=== PATIENT | male | born 1950 ===

== ENCOUNTER 2016-09-05 08:00 | Day surgery (SDC) | payer MEDICARE ==
[2016-02-07 17:22] VITALS: BMI 25.1
[2016-09-05] MEDS ORDERED: Dextrose 5%/0.45% NS 1,000 ML IV ONE (08:52)
[2016-09-05 08:53] VITALS: RESP 20
[2016-09-05] MEDS ORDERED: Propofol 10 mg/ml Inj (20 ML) ONE (10:33)
[2016-09-05 10:54] VITALS: PULSE 67; O2SAT 100
[2016-09-05 11:03] VITALS: BP 119/67; TEMP 95.5
== END 2016-09-05 11:30 | disposition home or self-care (01) ==
LOC: H.ENDO 08:00
PROVIDERS: ATTEND Internal Medicine Gastroenterology
DX: K29.50 Unspecified chronic gastritis without bleeding (principal); K29.80 Duodenitis without bleeding; R12 Heartburn
CPT/HCPCS: 43239; 82948; 88305; J2704; J7042

== ENCOUNTER 2017-01-11 10:52 | Inpatient (IN) | payer MEDICARE ==
[2017-01-11 10:52] VITALS: BMI 25.1
--- NOTE | 2017-01-11 11:26 | ED PDOC ---
ATTENTION PHYSICIANS Hyperglycemia/Hypoglycemia <Marisabel Mendez Y - Last Filed: 01/11/17 15:10> Chief Complaint (Provider): High blood sugar History Per: Patient History/Exam Limitations: no limitations Onset/Duration Of Symptoms: Hrs Current Symptoms Are (Timing): Still Present Current Diabetic Medications: Insulin Causative (Exacerbating) Factor(s): Other (Unknown) Associated Infectious Symptoms: Other (None) : The patient does not have any of the infectious symptoms listed except for those marked. Treatment Prior To Provider Evaluation: None Additional Complaint(s): 66 y/o M with PMHx of IDDM and CABG surgery, presents to ED c/o high blood sugar levels. Patient was called by his PMD and advised to come to ED due to abnormal labs. As per patient he has been complaint with his home insulin consisting of Lantus 78 units at night and Humalog SS with meals. Denies CP, Palpitations, SOB, vision changes, dysuria, urinary frequency, abd pain, headache, diarrhea or SOB. His last insulin administration was Lantus last night. <Tc Herrera - Last Filed: 01/11/17 16:51> Time Seen by Provider: 01/11/17 11:16 Chief Complaint (Nursing): High Blood Sugar Past Medical History Vital Signs: Last Vital Signs Temp 97.2 F L 01/11/17 10:57 Pulse 88 01/11/17 10:57 Resp 20 01/11/17 10:57 BP 113/56 L 01/11/17 10:57 Pulse Ox 100 01/11/17 11:30 <Marisabel Mendez Y - Last Filed: 01/11/17 15:10> Vital Signs: Last Vital Signs Temp 97.2 F L 01/11/17 10:57 Pulse 88 01/11/17 10:57 Resp 20 01/11/17 10:57 BP 113/56 L 01/11/17 10:57 Pulse Ox 100 01/11/17 10:57 - Medical History PMH: Anxiety, CAD, Depression (SOMETIMES NO MEDS), Diabetes, HTN, Hypercholesterolemia, Pancreatitis, Chronic Kidney Disease (50 % FUNCTION) - Surgical History Surgical History: CABG (5 VESSELS), Endoscopy - Family History Family History: States: Unknown Family Hx <Tc Herrera - Last Filed: 01/11/17 16:51> - Home Medications Home Medications: Ambulatory Orders Medication Instructions Recorded Aspirin [Aspirin EC] 81 mg PO HS 03/11/14 Insulin Aspart [Novolog Flexpen] 9 - 23 units SC ACTID 03/11/14 Insulin Glargine,Hum.rec.anlog 78 unit SC HS 03/11/14 [Lantus] Calcium Carbonate [Caltrate] 1 tab PO DAILY 01/11/17 Cholecalciferol (Vitamin D3) 5,000 unit PO DAILY 01/11/17 [Vitamin D3] Magnesium Oxide [Mag-Ox] 400 mg PO DAILY 01/11/17 [place]-3 Fatty Acids/Fish Oil [Fish 1,000 mg PO DAILY 01/11/17 Oil 1,000 mg Capsule] Rosuvastatin Calcium [Crestor] 20 mg PO HS 01/11/17 Valsartan [Diovan] 160 mg PO HS 01/11/17 - Allergies Allergies/Adverse Reactions: Allergies Allergy/AdvReac Type Severity Reaction Status Date / Time No Known Allergies Allergy Verified 01/11/17 11:22 Review of Systems ROS Statement: Except As Marked, All Systems Reviewed And Found Negative Gastrointestinal: Positive for: Constipation Psych: Positive for: Depression <Tc Herrera - Last Filed: 01/11/17 16:51> Physical Exam - Reviewed Vital Signs Reviewed: Yes - Physical Exam Appears: Positive for: Non-toxic, No Acute Distress Skin: Positive for: Normal Color, Warm Eye Exam: Positive for: PERRL Cardiovascular/Chest: Positive for: Regular Rate, Rhythm. Negative for: Edema, Gallop Respiratory: Positive for: Normal Breath Sounds. Negative for: Respiratory Distress Gastrointestinal/Abdominal: Positive for: Soft. Negative for: Tenderness Extremity: Positive for: Capillary Refill, Other (B/L 1st toe partial amputation ). Negative for: Tenderness, Pedal Edema Neurologic/Psych: Positive for: Alert, Oriented. Negative for: Aphasia, Facial Droop <Tc Herrera - Last Filed: 01/11/17 16:51> - Laboratory Results Result Diagrams: 01/11/17 11:32 01/11/17 11:32 <Marisabel Mendez - Last Filed: 01/11/17 15:10> - Laboratory Results Result Diagrams: 01/11/17 11:32 01/11/17 11:32 - ECG O2 Sat by Pulse Oximetry: 100 <Tc Herrera - Last Filed: 01/11/17 16:51> Medical Decision Making Medical Decision Making: -Patient signed out to me by resident. Pending labs. patient's glucose is 842, Anion gap is 16. 1320 -Spoke to Dr. Boo who wants patient in unit. 1322 -Called boiler coverer. Dr. Boo at bedside 1325 -Spoke to boiler coverer. Dr. Austin wants serum osmolality before deciding. 15:03 -Serum osmolality is 330. Will admit patient inpatient to telemetry under Dr. Boo. 15:08 -Spoke to Dr. Luciano, phlebotomy instructor, who said to stop drip <Marisabel Mendez - Last Filed: 01/11/17 15:10> Medical Decision Making: Hyperglycemia on IDDM Stable no acute distress F/U CBC, CMP, VBG, UA UCx NS 1 L IV 500mls Monitor Revaluate <Tc Herrera - Last Filed: 01/11/17 16:51> Disposition - Patient ED Disposition Is Patient to be Admitted: Yes Counseled Patient/Family Regarding: Studies Performed - Disposition Disposition Time: 15:01 - Pt Status Changed To: Hospital Disposition Of: Inpatient - Admit Certification Admit to Inpatient:: After my assessment, the patient will require hospitalization for at least two midnights. This is because of the severity of symptoms shown, intensity of services needed, and/or the medical risk in this patient being treated as an outpatient. <Marisabel Mendez - Last Filed: 01/11/17 15:10> - Disposition Patient Signed Over To: Marisabel Mendez (Pending labs) <Tc Herrera - Last Filed: 01/11/17 16:51> - Clinical Impression Clinical Impression: Hyperglycemia - Disposition Condition: STABLE
[2017-01-11] MEDS ORDERED: Sodium Chloride 0.9% 1,000 ML IV ONE (11:30)
[2017-01-11 11:48] LABS: BASO # 0.1 K/uL (0.0-0.2); BASO % 0.9 % (0.0-2.0); EOS # 0.1 K/uL (0.0-0.7); EOS % 1.3 % (0.0-4.0); HEMATOCRIT 37.5 % (35.0-51.0); LYMPH # 1.1 K/uL (1.0-4.3); LYMPH % 13.3 % (20.0-40.0); MEAN CELL VOLUME 91.4 fl (80.0-94.0); MEAN CORPUSCULAR HEMOGLOBIN 31.7 pg (27.0-31.0); MEAN CORPUSCULAR HGB CONC 34.7 g/dL (33.0-37.0); MEAN PLATELET VOLUME 9.7 fl (7.2-11.7); MONO # 0.9 K/uL (0.0-0.8); MONO % 10.1 % (0.0-10.0); NEUT # 6.3 K/uL (1.8-7.0); NEUT % 74.4 % (50.0-75.0); RBC URINE < 1 /hpf (0-3); RED CELL DISTRIBUTION WIDTH 12.3 % (11.5-14.5); URINE BILIRUBIN NEGATIVE (NEGATIVE); URINE BLOOD NEGATIVE (NEGATIVE); URINE COLOR STRAW (YELLOW); URINE GLUCOSE (UA) >=500 mg/dL (Normal); URINE KETONE TRACE mg/dL (NEGATIVE); URINE LEUKOCYTE ESTERASE NEG Leu/uL (Negative); URINE PROTEIN NEGATIVE (NEGATIVE); URINE UROBILINOGEN 0.2-1.0 mg/dL (0.2-1.0); WBC URINE < 1 /hpf (0-5); WHITE BLOOD COUNT 8.4 K/uL (4.8-10.8)
[2017-01-11 11:51] LABS: VENOUS BLOOD GAS PCO2 52 mmHg (40-60); VENOUS BLOOD PH 7.28 (7.32-7.43)
[2017-01-11 12:15] LABS: ALB/GLOB RATIO 1.2 (1.0-2.1); BILIRUBIN,TOTAL 0.8 mg/dl (0.2-1.3); CALCIUM 9.1 mg/dL (8.4-10.2); POTASSIUM 5.9 MMOL/L (3.6-5.0); TOTAL PROTEIN 8.2 G/DL (6.3-8.2)
[2017-01-11] MEDS ORDERED: Glucagon Recombinant 1 mg Inj IM PRN ×2 (13:14→13:18)
[2017-01-11] MEDS ORDERED: Dextrose 50% SYRINGE Inj (50 ml) IV PRN ×2 (13:14→13:18)
[2017-01-11] MEDS ORDERED: Insulin Regular 100 units/ml IV STA (13:14)
[2017-01-11] MEDS ORDERED: Sodium Chloride 0.9% 1,000 ML IV STA (13:16)
--- NOTE | 2017-01-11 14:09 | RAD ---
HISTORY: Diabetic ketoacidosis. COMPARISON: 02/04/2016. FINDINGS: LUNGS: No active pulmonary disease. PLEURA: No significant pleural effusion identified, no pneumothorax apparent. CARDIOVASCULAR: No radiographic findings to suggest acute or significant cardiovascular disease. Incidental Finding(s): Postoperative changes related to sternotomy. OSSEOUS STRUCTURES: No significant abnormalities. VISUALIZED UPPER ABDOMEN: Normal. OTHER FINDINGS: None. IMPRESSION: No active disease. No significant interval change compared to the prior examination(s).
[2017-01-11 17:45] LABS: TROPONIN I 0.013 ng/mL (0.00-0.120)
[2017-01-11] MEDS ORDERED: Dextrose 5%/0.45% NS 1,000 ML IV SCH (19:00)
--- NOTE | 2017-01-11 19:24 | CP.CCUPN ---
CCU Subjective - Physician Review Subjective (Free Text): ICU Admission: 66M admitted with uncontrolled DM II and dehydration, BS elevated to above 800 with elevated serum osmo. Started on IVF hydration in ER with 2 liters NSS and given insulin bolus and started in insulin drip. He denies any other concurrent illnesses. Other vitals and I/O's reviewed. ROS: No other pertinent negs or positives on 10+ system review. Allergies: NKDA Home Meds: ASA, CaCO3, Vit D3, Novolog Flexpen, Glargine insulin; Magoxide, [place] 3 FFA, Crestor, Diovan PMSFH: HTN, Insulin requiring DM II, CAD, Hyperlipidemia, non-drinker, non- smoker- Otherwise all Nursing and physician documentation reviewed to date; no new pertinent info noted relevant to current medical problems. EKG: sinus 69/min, flat and inverted T's all lead, no hyperacute T wave changes , old ASW AR CXR: essentially clear without consolidation, minor subsegmental basilar platelike atelectasis (my interp) IMPRESSION / MAJOR PROBLEMS NOW: 1. Hyperosmolar Hyperglycemic state- non comatose 2. Dehydration with Azotemia, and Hyperkalemia; r/o CKD 3. HTN PLAN: 1. IVF hydration, insulin drip until serum osmo normalizes. 2. Check repeat K levels; no deleterious arrhythmias noted. Check Mag, Phos levels as well. 3. Watch BP trends, hold ARB for now. ARB use may be limited if hyperkalemia and BUN/Cr do not resolve with IVFs. 4. Endocrinology eval. 5. Check routine Trops. 6. See orders CCU Objective - Vital Signs / Intake & Output Vital Signs (Last 4 hours): Vital Signs Temp Pulse Resp BP Pulse Ox 01/11/17 18:37 97.5 F L 73 18 157/79 H 100 01/11/17 16:52 100 01/11/17 16:14 76 18 122/59 L Intake and Output (Last 8hrs): Intake & Output 01/11/17 01/11/17 01/11/17 06:59 14:59 22:59 Weight 179 lb - Physical Exam Head: Positive for: Normocephalic Pupils: Positive for: PERRL Extroacular Muscles: Positive for: EOMI Conjunctiva: Positive for: Normal. Negative for: Icteric Mouth: Positive for: Dry Neck: Positive for: Normal Range of Motion. Negative for: Meningeal Signs, JVD Respiratory/Chest: Positive for: Clear to Auscultation. Negative for: Accessory Muscle Use, Wheezes Cardiovascular: Positive for: Regular Rate and Rhythm. Negative for: Murmurs, Rub Abdomen: Positive for: Normal Bowel Sounds. Negative for: Tenderness, Distention, Mass/Organomegaly Lower Extremity: Positive for: NORMAL PULSES. Negative for: CALF TENDERNESS, Cyanosis Neurological: Positive for: GCS=15, Motor Func Grossly Intact, Normal Sensory Function Skin: Positive for: Warm, Dry. Negative for: Rashes Psychiatric: Positive for: Alert, Oriented x 3 - Medications Active Medications: Active Medications Generic Name Dose Route Start Last Admin Trade Name Freq PRN Reason Stop Dose Admin Dextrose 0 ml 01/11/17 13:18 Dextrose 50% Inj IV STAT PRN Hypoglycemia Protocol Protocol Dextrose 0 gm 01/11/17 13:18 Glutose 15 PO ONCE PRN Hypoglycemia Protocol Protocol Glucagon 0 mg 01/11/17 13:18 Glucagen Diagnostic Kit IM STAT PRN Hypoglycemia Protocol Protocol Dextrose/Sodium Chloride 1,000 mls @ 125 mls/hr 01/11/17 19:00 Dextrose 5%/0.45% Ns 1000 Ml IV 01/13/17 19:01 .Q8H [facility] Insulin Human Regular 100 101 mls @ 3.03 mls/hr 01/11/17 18:54 units/ Sodium Chloride IV .Q24H [facility] Protocol 3 UNITS/HR - Patient Studies Lab Studies: Lab Studies 01/11/17 01/11/17 01/11/17 Range/Units 13:57 11:45 11:32 WBC (4.8-10.8) K/uL RBC (4.40-5.90) Mil/uL Hgb (12.0-18.0) g/dL Hct (35.0-51.0) % MCV (80.0-94.0) fl MCH (27.0-31.0) pg MCHC (33.0-37.0) g/dL RDW (11.5-14.5) % Plt Count (130-400) K/uL MPV (7.2-11.7) fl Neut % (Auto) (50.0-75.0) % Lymph % (Auto) (20.0-40.0) % [place] % (Auto) (0.0-10.0) % Eos % (Auto) (0.0-4.0) % Baso % (Auto) (0.0-2.0) % Neut # (1.8-7.0) K/uL Lymph # (1.0-4.3) K/uL [place] # (0.0-0.8) K/uL Eos # (0.0-0.7) K/uL Baso # (0.0-0.2) K/uL pO2 17 L (30-55) mm/Hg VBG pH 7.28 L (7.32-7.43) VBG pCO2 52 (40-60) mmHg VBG HCO3 20.4 mmol/L VBG O2 Sat (Calc) 37.3 L (40-65) % VBG Base Excess -3.0 L (0.0-2.0) mmol/L Sodium (132-148) mmol/l Potassium (3.6-5.0) MMOL/L Chloride (98-107) mmol/L Carbon Dioxide (22-30) mmol/L Anion Gap (10-20) BUN (9-20) mg/dl Creatinine (0.8-1.5) mg/dl Est GFR ( Amer) Est GFR (Non-Af Amer) Random Glucose (75-110) mg/dL Serum Osmolality 330 H (272-300) mosm/kg Calcium (8.4-10.2) mg/dL Total Bilirubin (0.2-1.3) mg/dl AST (17-59) U/L ALT (21-72) U/L Alkaline Phosphatase (38-126) U/L Troponin I (0.00-0.120) ng/mL Total Protein (6.3-8.2) G/DL Albumin (3.5-5.0) g/dL Globulin (2.2-3.9) gm/dL Albumin/Globulin Ratio (1.0-2.1) Urine Color Straw (YELLOW) Urine Clarity Clear (Clear) Urine pH 6.0 (5.0-8.0) Ur Specific [place] 1.025 (1.003-1.030) Urine Protein Negative (NEGATIVE) mg/dL Urine Glucose (UA) >=500 (Normal) mg/dL Urine Ketones Trace (NEGATIVE) mg/dL Urine Blood Negative (NEGATIVE) Urine Nitrate Negative (NEGATIVE) Urine Bilirubin Negative (NEGATIVE) Urine Urobilinogen 0.2-1.0 (0.2-1.0) mg/dL Ur Leukocyte Esterase Neg (Negative) Derik/uL Urine RBC (Auto) < 1 (0-3) /hpf Urine Microscopic WBC < 1 (0-5) /hpf 01/11/17 01/11/17 Range/Units 11:32 11:32 WBC 8.4 (4.8-10.8) K/uL RBC 4.11 L (4.40-5.90) Mil/uL Hgb 13.0 (12.0-18.0) g/dL Hct 37.5 (35.0-51.0) % MCV 91.4 (80.0-94.0) fl MCH 31.7 H (27.0-31.0) pg MCHC 34.7 (33.0-37.0) g/dL RDW 12.3 (11.5-14.5) % Plt Count 297 D (130-400) K/uL MPV 9.7 (7.2-11.7) fl Neut % (Auto) 74.4 (50.0-75.0) % Lymph % (Auto) 13.3 L (20.0-40.0) % [place] % (Auto) 10.1 H (0.0-10.0) % Eos % (Auto) 1.3 (0.0-4.0) % Baso % (Auto) 0.9 (0.0-2.0) % Neut # 6.3 (1.8-7.0) K/uL Lymph # 1.1 (1.0-4.3) K/uL [place] # 0.9 H (0.0-0.8) K/uL Eos # 0.1 (0.0-0.7) K/uL Baso # 0.1 (0.0-0.2) K/uL pO2 (30-55) mm/Hg VBG pH (7.32-7.43) VBG pCO2 (40-60) mmHg VBG HCO3 mmol/L VBG O2 Sat (Calc) (40-65) % VBG Base Excess (0.0-2.0) mmol/L Sodium 126 L (132-148) mmol/l Potassium 5.9 H (3.6-5.0) MMOL/L Chloride 90 L (98-107) mmol/L Carbon Dioxide 21 L (22-30) mmol/L Anion Gap 21 H (10-20) BUN 47 H (9-20) mg/dl Creatinine 2.7 H (0.8-1.5) mg/dl Est GFR ( Amer) 29 Est GFR (Non-Af Amer) 24 Random Glucose 842 H* D (75-110) mg/dL Serum Osmolality (272-300) mosm/kg Calcium 9.1 (8.4-10.2) mg/dL Total Bilirubin 0.8 (0.2-1.3) mg/dl AST 25 (17-59) U/L ALT 41 (21-72) U/L Alkaline Phosphatase 158 H (38-126) U/L Troponin I 0.0130 (0.00-0.120) ng/mL Total Protein 8.2 (6.3-8.2) G/DL Albumin 4.5 (3.5-5.0) g/dL Globulin 3.7 (2.2-3.9) gm/dL Albumin/Globulin Ratio 1.2 (1.0-2.1) Urine Color (YELLOW) Urine Clarity (Clear) Urine pH (5.0-8.0) Ur Specific [place] (1.003-1.030) Urine Protein (NEGATIVE) mg/dL Urine Glucose (UA) (Normal) mg/dL Urine Ketones (NEGATIVE) mg/dL Urine Blood (NEGATIVE) Urine Nitrate (NEGATIVE) Urine Bilirubin (NEGATIVE) Urine Urobilinogen (0.2-1.0) mg/dL Ur Leukocyte Esterase (Negative) Derik/uL Urine RBC (Auto) (0-3) /hpf Urine Microscopic WBC (0-5) /hpf Laboratory Results - last 24 hr 01/11/17 01/11/17 01/11/17 11:32 11:32 11:32 WBC 8.4 RBC 4.11 L Hgb 13.0 Hct 37.5 MCV 91.4 MCH 31.7 H MCHC 34.7 RDW 12.3 Plt Count 297 D MPV 9.7 Neut % (Auto) 74.4 Lymph % (Auto) 13.3 L [place] % (Auto) 10.1 H Eos % (Auto) 1.3 Baso % (Auto) 0.9 Neut # 6.3 Lymph # 1.1 [place] # 0.9 H Eos # 0.1 Baso # 0.1 pO2 VBG pH VBG pCO2 VBG HCO3 VBG O2 Sat (Calc) VBG Base Excess Sodium 126 L Potassium 5.9 H Chloride 90 L Carbon Dioxide 21 L Anion Gap 21 H BUN 47 H Creatinine 2.7 H Est GFR ( Amer) 29 Est GFR (Non-Af Amer) 24 Random Glucose 842 H* D Serum Osmolality Calcium 9.1 Total Bilirubin 0.8 AST 25 ALT 41 Alkaline Phosphatase 158 H Troponin I 0.0130 Total Protein 8.2 Albumin 4.5 Globulin 3.7 Albumin/Globulin Ratio 1.2 Urine Color Straw Urine Clarity Clear Urine pH 6.0 Ur Specific [place] 1.025 Urine Protein Negative Urine Glucose (UA) >=500 Urine Ketones Trace Urine Blood Negative Urine Nitrate Negative Urine Bilirubin Negative Urine Urobilinogen 0.2-1.0 Ur Leukocyte Esterase Neg Urine RBC (Auto) < 1 Urine Microscopic WBC < 1 01/11/17 01/11/17 11:45 13:57 WBC RBC Hgb Hct MCV MCH MCHC RDW Plt Count MPV Neut % (Auto) Lymph % (Auto) [place] % (Auto) Eos % (Auto) Baso % (Auto) Neut # Lymph # [place] # Eos # Baso # pO2 17 L VBG pH 7.28 L VBG pCO2 52 VBG HCO3 20.4 VBG O2 Sat (Calc) 37.3 L VBG Base Excess -3.0 L Sodium Potassium Chloride Carbon Dioxide Anion Gap BUN Creatinine Est GFR ( Amer) Est GFR (Non-Af Amer) Random Glucose Serum Osmolality 330 H Calcium Total Bilirubin AST ALT Alkaline Phosphatase Troponin I Total Protein Albumin Globulin Albumin/Globulin Ratio Urine Color Urine Clarity Urine pH Ur Specific [place] Urine Protein Urine Glucose (UA) Urine Ketones Urine Blood Urine Nitrate Urine Bilirubin Urine Urobilinogen Ur Leukocyte Esterase Urine RBC (Auto) Urine Microscopic WBC Radiology Interpretations (Free Text): see above Fingerstick Blood Sugar Results: 281 Review of Systems - Review of Systems All systems: reviewed and no additional remarkable complaints except (as above)
[2017-01-11 19:47] LABS: CALCIUM 8.9 mg/dL (8.4-10.2); POTASSIUM 4.6 MMOL/L (3.6-5.0)
[2017-01-11] MEDS: Sodium Chloride 0.9% 1,000 ML IV SCH (20:25)
--- NOTE | 2017-01-11 20:44 | CP.PCM.HP ---
History of Present Illness - History of Present Illness History of Present Illness: Patient presented in ER with elevated BG about 800, acidotic, hyperosmolar, ketotic. Patient was seen in ER severally dehydrated and hyponatremic with hyperkalemic. He was started on iv fluid and iv insulin. Present on Admission - Present on Admission Any Indicators Present on Admission: No Review of Systems - Constitutional Constitutional: As Per HPI - EENT Eyes: As Per HPI - Cardiovascular Cardiovascular: As Per HPI - Respiratory Respiratory: As Per HPI - Gastrointestinal Gastrointestinal: As Per HPI - Musculoskeletal Musculoskeletal: As Per HPI - Integumentary Integumentary: As Per HPI - Neurological Neurological: As Per HPI Past Patient History - Past Medical History & Family History Past Medical History?: Yes - Past Social History Smoking Status: Former Smoker - CARDIAC Hx Cardiac Disorders: Yes Hx Hypercholesterolemia: Yes Hx Hypertension: Yes - PULMONARY Hx Respiratory Disorders: No - NEUROLOGICAL Hx Neurological Disorder: No - HEENT Hx HEENT Problems: Yes Hx Cataracts: Yes - RENAL Hx Chronic Kidney Disease: Yes (32% FUNCTION) - ENDOCRINE/METABOLIC Hx Endocrine Disorders: Yes Hx Diabetes Mellitus Type 2: Yes - HEMATOLOGICAL/ONCOLOGICAL Hx Blood Disorders: Yes Hx Blood Transfusions: Yes Hx Blood Transfusion Reaction: No - INTEGUMENTARY Hx Dermatological Problems: No - MUSCULOSKELETAL/RHEUMATOLOGICAL Hx Musculoskeletal Disorders: Yes Hx Falls: Yes Hx Unsteady Gait: Yes - GASTROINTESTINAL Hx Gastrointestinal Disorders: Yes Hx Pancreatitis: Yes - GENITOURINARY/GYNECOLOGICAL Hx Genitourinary Disorders: No - PSYCHIATRIC Hx Psychophysiologic Disorder: Yes Hx Anxiety: Yes Hx Depression: Yes Hx Substance Use: No - SURGICAL HISTORY Hx Surgeries: Yes Hx Coronary Artery Bypass Graft: Yes (5 VESSELS) Other/Comment: Right foot big toe amputation, left foot big toe partial amputation. - ANESTHESIA Hx Anesthesia: Yes Hx Anesthesia Reactions: No Hx Malignant Hyperthermia: No Has any member of the family had a problem w/ anesthesia?: No Meds Allergies/Adverse Reactions: Allergies Allergy/AdvReac Type Severity Reaction Status Date / Time No Known Allergies Allergy Verified 01/11/17 11:22 Physical Exam - Constitutional Appears: Toxic, Chronically Ill - Head Exam Head Exam: ATRAUMATIC, NORMAL INSPECTION, NORMOCEPHALIC - Eye Exam Eye Exam: Normal appearance - ENT Exam ENT Exam: Mucous Membranes Dry - Neck Exam Neck exam: Positive for: Full Rom - Respiratory Exam Respiratory Exam: NORMAL BREATHING PATTERN - Cardiovascular Exam Cardiovascular Exam: REGULAR RHYTHM, +S1, +S2 - GI/Abdominal Exam GI & Abdominal Exam: Normal Bowel Sounds, Soft - Extremities Exam Extremities exam: Positive for: normal inspection - Neurological Exam Neurological exam: Alert, CN II-XII Intact - Psychiatric Exam Psychiatric exam: Depressed - Skin Skin Exam: Pallor Results - Vital Signs Recent Vital Signs: Last Vital Signs Temp 97.5 F L 01/11/17 18:37 Pulse 73 01/11/17 18:37 Resp 18 01/11/17 18:37 BP 157/79 H 01/11/17 18:37 Pulse Ox 100 01/11/17 18:37 - Labs Result Diagrams: 01/11/17 11:32 01/11/17 19:00 Labs: Laboratory Results - last 24 hr 01/11/17 01/11/17 01/11/17 11:32 11:32 11:32 WBC 8.4 RBC 4.11 L Hgb 13.0 Hct 37.5 MCV 91.4 MCH 31.7 H MCHC 34.7 RDW 12.3 Plt Count 297 D MPV 9.7 Neut % (Auto) 74.4 Lymph % (Auto) 13.3 L [place] % (Auto) 10.1 H Eos % (Auto) 1.3 Baso % (Auto) 0.9 Neut # 6.3 Lymph # 1.1 [place] # 0.9 H Eos # 0.1 Baso # 0.1 pO2 VBG pH VBG pCO2 VBG HCO3 VBG O2 Sat (Calc) VBG Base Excess Sodium 126 L Potassium 5.9 H Chloride 90 L Carbon Dioxide 21 L Anion Gap 21 H BUN 47 H Creatinine 2.7 H Est GFR ( Amer) 29 Est GFR (Non-Af Amer) 24 Random Glucose 842 H* D Serum Osmolality Calcium 9.1 Total Bilirubin 0.8 AST 25 ALT 41 Alkaline Phosphatase 158 H Troponin I 0.0130 Total Protein 8.2 Albumin 4.5 Globulin 3.7 Albumin/Globulin Ratio 1.2 Urine Color Straw Urine Clarity Clear Urine pH 6.0 Ur Specific [place] 1.025 Urine Protein Negative Urine Glucose (UA) >=500 Urine Ketones Trace Urine Blood Negative Urine Nitrate Negative Urine Bilirubin Negative Urine Urobilinogen 0.2-1.0 Ur Leukocyte Esterase Neg Urine RBC (Auto) < 1 Urine Microscopic WBC < 1 12/07/2301/11/17 01/11/17 11:45 13:57 19:00 WBC RBC Hgb Hct MCV MCH MCHC RDW Plt Count MPV Neut % (Auto) Lymph % (Auto) [place] % (Auto) Eos % (Auto) Baso % (Auto) Neut # Lymph # [place] # Eos # Baso # pO2 17 L VBG pH 7.28 L VBG pCO2 52 VBG HCO3 20.4 VBG O2 Sat (Calc) 37.3 L VBG Base Excess -3.0 L Sodium 137 Potassium 4.6 Chloride 102 Carbon Dioxide 25 Anion Gap 15 BUN 41 H Creatinine 2.2 H Est GFR ( Amer) 37 Est GFR (Non-Af Amer) 30 Random Glucose 306 H Serum Osmolality 330 H Calcium 8.9 Total Bilirubin AST ALT Alkaline Phosphatase Troponin I Total Protein Albumin Globulin Albumin/Globulin Ratio Urine Color Urine Clarity Urine pH Ur Specific [place] Urine Protein Urine Glucose (UA) Urine Ketones Urine Blood Urine Nitrate Urine Bilirubin Urine Urobilinogen Ur Leukocyte Esterase Urine RBC (Auto) Urine Microscopic WBC 01/11/17 19:30 WBC RBC Hgb Hct MCV MCH MCHC RDW Plt Count MPV Neut % (Auto) Lymph % (Auto) [place] % (Auto) Eos % (Auto) Baso % (Auto) Neut # Lymph # [place] # Eos # Baso # pO2 VBG pH VBG pCO2 VBG HCO3 VBG O2 Sat (Calc) VBG Base Excess Sodium Potassium Chloride Carbon Dioxide Anion Gap BUN Creatinine Est GFR ( Amer) Est GFR (Non-Af Amer) Random Glucose Serum Osmolality Calcium Total Bilirubin AST ALT Alkaline Phosphatase Troponin I 0.0170 Total Protein Albumin Globulin Albumin/Globulin Ratio Urine Color Urine Clarity Urine pH Ur Specific [place] Urine Protein Urine Glucose (UA) Urine Ketones Urine Blood Urine Nitrate Urine Bilirubin Urine Urobilinogen Ur Leukocyte Esterase Urine RBC (Auto) Urine Microscopic WBC Assessment & Plan (1) Hyperosmolality Status: Acute (2) Acidosis Status: Acute (3) Acidosis Status: Acute (4) Ketosis Status: Acute (5) Ketosis Status: Acute (6) Hyperkalemia Status: Acute (7) Hyperkalemia Status: Acute (8) Hyponatremia Status: Acute (9) Hyponatremia Status: Acute (10) Dehydration Status: Acute (11) Dehydration Status: Acute (12) Hyperglycemia Status: Acute (13) CAD (coronary artery disease) Status: Acute (14) DM2 (diabetes mellitus, type 2) Status: Acute (15) HTN (hypertension) Status: Acute (16) Coronary arteriosclerosis Status: Chronic (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
[2017-01-11] MEDS ORDERED: Insulin Detemir 100 Units/ml Inj SC SCH (22:00)
[2017-01-12] MEDS: Sodium Chloride 0.9% 1,000 ML IV SCH ×5 (01:06→22:37)
[2017-01-12 05:23] LABS: BASO % 0.5 % (0.0-2.0); EOS # 0.2 K/uL (0.0-0.7); EOS % 2.4 % (0.0-4.0); HEMATOCRIT 32.5 % (35.0-51.0); LYMPH % 23.3 % (20.0-40.0); MEAN CELL VOLUME 89.9 fl (80.0-94.0); MEAN CORPUSCULAR HEMOGLOBIN 31.4 pg (27.0-31.0); MEAN PLATELET VOLUME 9.4 fl (7.2-11.7); MONO # 0.8 K/uL (0.0-0.8); MONO % 9.3 % (0.0-10.0); NEUT # 5.6 K/uL (1.8-7.0); NEUT % 64.5 % (50.0-75.0); RED CELL DISTRIBUTION WIDTH 12.1 % (11.5-14.5); WHITE BLOOD COUNT 8.6 K/uL (4.8-10.8)
[2017-01-12 05:44] LABS: TROPONIN I 0.013 ng/mL (0.00-0.120)
[2017-01-12 05:52] LABS: BILIRUBIN,TOTAL 0.3 mg/dl (0.2-1.3); CALCIUM 8.4 mg/dL (8.4-10.2); POTASSIUM 4.2 MMOL/L (3.6-5.0); TOTAL PROTEIN 6.5 G/DL (6.3-8.2)
[2017-01-12 06:03] LABS: THYROID STIMULATING HORMONE 1.75 mIU/ML (0.46-4.68)
[2017-01-12] MEDS: Insulin Lispro (humaLOG) 100 Units/ml Inj SC SCH ×6 (06:30→22:30)
--- NOTE | 2017-01-12 07:24 | CON ---
DATE: ENDOCRINOLOGY CONSULTATION LOCATION: ICU, room 421. HISTORY OF PRESENT ILLNESS: This is a 66-year-old male with known history of type 1 insulin-dependent diabetes, presenting here with marked hyperglycemic accelerations and dehydration and is now being referred for diabetic evaluation and management. PAST MEDICAL HISTORY: As mentioned above. History of type 1 insulin-dependent diabetes, currently on a combination of a high dose basal insulin with Lantus given as 78 units subcu at bedtime daily with a p.r.n. and variable dosing regimen of NovoLog given 3 times a day as indicated. His dose regimen would range from 10-20 units t.i.d. as given. History of hypertension and dyslipidemia, history of coronary artery disease with previous myocardial infarction and subsequent coronary artery bypass graft surgery as noted. History of generalized anxiety and depression and previously on psychotropic medications. History of a prior bout of pancreatitis. Also, history of diabetic retinopathy, polyneuropathy, and nephropathy with underlying chronic kidney disease. FAMILY HISTORY: Positive for hypertension and heart disease. SOCIAL HISTORY: The patient has a supportive family. No known substance use. REVIEW OF SYSTEMS: As mentioned above. Admits to generalized body weakness with easy fatigability and tiredness and occasional bifrontal headaches with recent visual blurring as noted. No chest pains or palpitations, but admits to episodic bouts of shortness of breath, especially on exertion but denies any paroxysmal nocturnal dyspnea. His oral intake has been variable with nausea, dyspepsia, and vague upper abdominal pains and also supervening marked polyuria, nocturia, polydipsia, and a bout of 5-pound or so weight loss. PHYSICAL EXAMINATION: GENERAL: This is an average built male, in no apparent distress. VITAL SIGNS: Blood pressure of 120/70, pulse of 78 beats per minute and regular, temperature 98, respirations 20, height is 5 feet 6 inches, weight is 179 pounds. HEENT: Head normocephalic. Eyes anicteric with pink conjunctivae. Funduscopy not possible at this time. Ears, nose, and throat otherwise normal. NECK: Supple. Thyroid gland is normal in size. No carotid bruits or any cervical adenopathy. CARDIOPULMONARY: Some adynamic precordium. S1, S2 is rapid and regular. LUNGS: Clear to auscultation. ABDOMEN: Flat, soft with positive bowel sounds. EXTREMITIES: No peripheral edema. Pulses are +2 bilaterally. LABORATORY DATA: His initial chemistries showed a BUN of 47, sodium 126, potassium 5.9, chloride 90, CO2 of 21, glucose 842, and creatinine 2.7. The repeat creatinine is 2.2 and subsequent glucose levels have ranged from 306 to 330 mg/dL. ASSESSMENT: This is a 66-year-old male with uncontrolled and decompensated type 1 insulin-dependent diabetes, presenting here with hyperosmolar hyperglycemic state and mild ketosis with spurious hyponatremia and prerenal azotemia. There is also a significant history of diabetic microvascular complications of retinopathy, polyneuropathy, and nephropathy with underlying chronic kidney disease. He also has cardiac vasculopathy with coronary artery disease and a previous myocardial infarction and subsequent 5-vessel coronary artery bypass graft surgery as noted. He admits also to underlying peripheral arterial disease and vasculopathy. PLAN OF MANAGEMENT: As discussed with the patient and staff, we will continue the vigorous IV hydration to replenish the volume depletion and fluid and electrolyte losses from the increased osmotic diuresis thereof. We will change his IV from D5 and half normal saline to normal saline at 200 mL/hour at least to be given overnight until the repeat lab testing is completed. We will discontinue the insulin drip infusion at this time as he is more dehydrated than insulin deficient at this time. We will discontinue the insulin drip and switch him over to a more physiologic basal and bolus insulin regimen as ordered. We will start him tonight with Levemir given as 40 units subcu at bedtime daily as ordered. We will start him tomorrow morning on Humalog given as 12 units subcu t.i.d. before meals as ordered. We will modify the coverage scale to obviate hypoglycemia and detailed orders have been given for a low-dose algorithm using Humalog insulin as given. We will obtain a hemoglobin A1c to confirm his prior glycemic control and baseline thyroid function studies and a lipid panel will be ordered. We will initiate diabetic education and dietary instructions at the time of this admission. We will obtain serial chemistries and supplement accordingly as needed and also adjust his fluids accordingly and supplement his electrolytes as indicated. We will follow and advise accordingly. Felicity Luciano MD
[2017-01-12] MEDS ORDERED: Insulin Lispro (humaLOG) 100 Units/ml Inj SC SCH (07:30)
[2017-01-12 10:23] LABS: BASO # 0.1 K/uL (0.0-0.2); BASO % 0.9 % (0.0-2.0); EOS # 0.2 K/uL (0.0-0.7); HEMATOCRIT 32.4 % (35.0-51.0); LYMPH # 1.9 K/uL (1.0-4.3); LYMPH % 23.7 % (20.0-40.0); MEAN CELL VOLUME 89.6 fl (80.0-94.0); MEAN CORPUSCULAR HEMOGLOBIN 31.8 pg (27.0-31.0); MEAN CORPUSCULAR HGB CONC 35.5 g/dL (33.0-37.0); MONO # 0.6 K/uL (0.0-0.8); MONO % 7.8 % (0.0-10.0); NEUT # 5.3 K/uL (1.8-7.0); NEUT % 65.6 % (50.0-75.0); RED CELL DISTRIBUTION WIDTH 12.1 % (11.5-14.5); WHITE BLOOD COUNT 8.1 K/uL (4.8-10.8)
[2017-01-12 10:41] LABS: CALCIUM 8.6 mg/dL (8.4-10.2); POTASSIUM 4.4 MMOL/L (3.6-5.0)
--- NOTE | 2017-01-12 10:44 | CARD ---
APPROVED REPORT EKG Measurement Heart [id number] <Conclusion> Normal sinus rhythm Left anterior fascicular block Possible septal infarct, age undetermined Abnormal ECG
--- NOTE | 2017-01-12 15:37 | CP.PCM.PN ---
Subjective - Date & Time of Evaluation Date of Evaluation: 01/12/17 Time of Evaluation: 15:37 - Subjective Subjective: Patient improving still weak and depress. Objective - Vital Signs/Intake and Output Vital Signs (last 24 hours): Temp Pulse Resp BP Pulse Ox 98.2 F 82 18 126/72 98 01/12/17 12:00 01/12/17 12:00 01/12/17 12:00 01/12/17 12:00 01/12/17 12:00 Intake and Output: 01/12/17 01/12/17 11:59 23:59 Intake Total 2880 Balance 2880 - Medications Medications: Current Medications Dextrose (Dextrose 50% Inj) 0 ml IV STAT PRN; Protocol PRN Reason: Hypoglycemia Protocol Dextrose (Glutose 15) 0 gm PO ONCE PRN; Protocol PRN Reason: Hypoglycemia Protocol Glucagon (Glucagen Diagnostic Kit) 0 mg IM STAT PRN; Protocol PRN Reason: Hypoglycemia Protocol Heparin Sodium (Porcine) (Heparin) 5,000 units SC Q12 ROSHAN PRN Reason: Protocol Last Admin: 01/12/17 08:38 Dose: 5,000 units Sodium Chloride (Sodium Chloride 0.9%) 1,000 mls @ 200 mls/hr IV .Q5H [facility] Stop: 01/12/17 20:03 Last Admin: 01/12/17 15:22 Dose: 200 mls/hr Insulin Detemir (Levemir) 50 units SC [facility] Insulin Human Lispro (Humalog) 0 units SC ACHS [facility] PRN Reason: Protocol Last Admin: 01/12/17 13:50 Dose: Not Given Insulin Human Lispro (Humalog) 14 units SC [facility] Last Admin: 01/12/17 13:50 Dose: 14 units - Labs Labs: 01/12/17 10:00 01/12/17 10:00 - Constitutional Appears: Chronically Ill - Head Exam Head Exam: ATRAUMATIC, NORMAL INSPECTION, NORMOCEPHALIC - Eye Exam Eye Exam: Normal appearance - ENT Exam ENT Exam: Mucous Membranes Dry - Neck Exam Neck Exam: Full ROM - Respiratory Exam Respiratory Exam: Clear to Ausculation Bilateral - Cardiovascular Exam Cardiovascular Exam: REGULAR RHYTHM, +S1, +S2 - GI/Abdominal Exam GI & Abdominal Exam: Soft, Normal Bowel Sounds - Neurological Exam Neurological Exam: Alert, Awake, CN II-XII Intact - Psychiatric Exam Psychiatric exam: Depressed - Skin Skin Exam: Normal Color Assessment and Plan (1) Hyperosmolality Status: Acute (2) Acidosis Status: Acute (3) Acidosis Status: Acute (4) Ketosis Status: Acute (5) Ketosis Status: Acute (6) Hyperkalemia Status: Acute (7) Hyperkalemia Status: Acute (8) Hyponatremia Status: Acute (9) Hyponatremia Status: Acute (10) Dehydration Status: Acute (11) Dehydration Status: Acute (12) Hyperglycemia Status: Acute (13) CAD (coronary artery disease) Status: Acute (14) DM2 (diabetes mellitus, type 2) Status: Acute (15) HTN (hypertension) Status: Acute (16) Coronary arteriosclerosis Status: Chronic (17) Diabetic nephropathies Status: Chronic (18) Depression Status: Acute - Assessment and Plan (Free Text) Plan: Continue present rx. not suicidal not homicidal
[2017-01-12 16:14] VITALS: RESP 20
--- NOTE | 2017-01-12 21:18 | PN ---
DATE: ENDOCRINOLOGY FOLLOWUP NOTE LOCATION: Room 664. SUBJECTIVE: This is a 66-year-old male with recent uncontrolled type 2 insulin-requiring diabetes, presenting here with marked hyperglycemic accelerations and concomitant biochemical evidence of hyperosmolar hyperglycemic state with mild ketosis and also moderate dehydration with prerenal azotemia and spurious hyponatremia. He received vigorous IV hydration with normal saline as given and has remarkable improvement overnight biochemically as noted. He was also given an insulin drip infusion, which was discontinued last night and has been switched over to a basal and bolus insulin regimen as given. His latest glucose levels have ranged now from 157-308 mg/dL. His hemoglobin A1c is 10.0% as noted. The latest chemistry showed a BUN of 30, sodium 142, potassium 4.4, chloride 110, CO2 of 23, glucose 111, and creatinine 1.8. So, at this time, we will continue the normal saline at 200 mL/hour to fully replenish the volume depletion as noted. We will modify his basal and bolus insulin regimen and increase the Humalog to 14 units subcu t.i.d. before meals to start at lunchtime today as ordered. We will also increase the basal insulin with Levemir to be given as 50 units subcu at bedtime daily to start tonight. We will titrate incremental as indicated to optimize metabolic control. We will obtain serial chemistries and supplement accordingly as needed. We will follow. Felicity Luciano MD
[2017-01-12] MEDS ORDERED: Insulin Detemir 100 Units/ml Inj SC SCH (22:00)
[2017-01-13 08:36] VITALS: O2SAT 99
[2017-01-13] MEDS: Insulin Lispro (humaLOG) 100 Units/ml Inj SC SCH ×5 (08:36→17:16)
[2017-01-13] MEDS: Sodium Chloride 0.9% 1,000 ML IV SCH (08:57)
[2017-01-13 09:00] LABS: CALCIUM 9.1 mg/dL (8.4-10.2); POTASSIUM 4.3 MMOL/L (3.6-5.0)
--- NOTE | 2017-01-13 13:45 | CP.PCM.DIS ---
Provider - Provider Date of Admission: 01/11/17 15:01 Attending physician: Amanuel Boo MD Time Spent in preparation of Discharge (in minutes): 30 Diagnosis - Discharge Diagnosis (1) Hyperosmolality Status: Acute (2) Acidosis Status: Acute (3) Acidosis Status: Acute (4) Ketosis Status: Acute (5) Ketosis Status: Acute (6) Hyperkalemia Status: Acute (7) Hyperkalemia Status: Acute (8) Hyponatremia Status: Acute (9) Hyponatremia Status: Acute (10) Dehydration Status: Acute (11) Dehydration Status: Acute (12) Hyperglycemia Status: Acute (13) CAD (coronary artery disease) Status: Acute (14) DM2 (diabetes mellitus, type 2) Status: Acute (15) HTN (hypertension) Status: Acute (16) Coronary arteriosclerosis Status: Chronic (17) Diabetic nephropathies Status: Chronic (18) Depression Status: Acute Hospital Course - Lab Results Lab Results: Micro Results 01/11/17 06:31 Naris MRSA Culture (Admit) - Final MRSA NOT DETECTED 01/11/17 11:32 Urine,Clean Catch Urine Culture - Final No Growth (<1,000 CFU/ML) Most Recent Lab Values WBC 8.1 K/uL (4.8-10.8) 01/12/17 10:00 RBC 3.62 Mil/uL (4.40-5.90) L 01/12/17 10:00 Hgb 11.5 g/dL (12.0-18.0) L 01/12/17 10:00 Hct 32.4 % (35.0-51.0) L 01/12/17 10:00 MCV 89.6 fl (80.0-94.0) 01/12/17 10:00 MCH 31.8 pg (27.0-31.0) H 01/12/17 10:00 MCHC 35.5 g/dL (33.0-37.0) 01/12/17 10:00 RDW 12.1 % (11.5-14.5) 01/12/17 10:00 Plt Count 236 K/uL (130-400) 01/12/17 10:00 MPV 9.0 fl (7.2-11.7) 01/12/17 10:00 Neut % (Auto) 65.6 % (50.0-75.0) 01/12/17 10:00 Lymph % (Auto) 23.7 % (20.0-40.0) 01/12/17 10:00 [place] % (Auto) 7.8 % (0.0-10.0) 01/12/17 10:00 Eos % (Auto) 2.0 % (0.0-4.0) 01/12/17 10:00 Baso % (Auto) 0.9 % (0.0-2.0) 01/12/17 10:00 Neut # 5.3 K/uL (1.8-7.0) 01/12/17 10:00 Lymph # 1.9 K/uL (1.0-4.3) 01/12/17 10:00 [place] # 0.6 K/uL (0.0-0.8) 01/12/17 10:00 Eos # 0.2 K/uL (0.0-0.7) 01/12/17 10:00 Baso # 0.1 K/uL (0.0-0.2) 01/12/17 10:00 pO2 17 mm/Hg (30-55) L 01/11/17 11:45 VBG pH 7.28 (7.32-7.43) L 01/11/17 11:45 VBG pCO2 52 mmHg (40-60) 01/11/17 11:45 VBG HCO3 20.4 mmol/L 01/11/17 11:45 VBG O2 Sat (Calc) 37.3 % (40-65) L 01/11/17 11:45 VBG Base Excess -3.0 mmol/L (0.0-2.0) L 01/11/17 11:45 Sodium 143 mmol/l (132-148) 01/13/17 08:35 Potassium 4.3 MMOL/L (3.6-5.0) 01/13/17 08:35 Chloride 111 mmol/L (98-107) H 01/13/17 08:35 Carbon Dioxide 22 mmol/L (22-30) 01/13/17 08:35 Anion Gap 14 (10-20) 01/13/17 08:35 BUN 21 mg/dl (9-20) H 01/13/17 08:35 Creatinine 1.7 mg/dl (0.8-1.5) H 12 08:35 Est GFR ( Amer) 49 01/13/17 08:35 Est GFR (Non-Af Amer) 41 01/13/17 08:35 POC Glucose (mg/dL) 179 mg/dL (65-110) H 01/13/17 06:28 Random Glucose 131 mg/dL (75-110) H 01/13/17 08:35 Hemoglobin A1c 10.0 % (4.2-6.5) H D 01/12/17 04:30 Serum Osmolality 308 mosm/kg (272-300) H 01/12/17 04:30 Calcium 9.1 mg/dL (8.4-10.2) 01/13/17 08:35 Phosphorus 3.0 mg/dl (2.5-4.5) 01/12/17 04:30 Total Bilirubin 0.3 mg/dl (0.2-1.3) 01/12/17 04:30 AST 18 U/L (17-59) 01/12/17 04:30 ALT 34 U/L (21-72) 01/12/17 04:30 Alkaline Phosphatase 91 U/L (38-126) 01/12/17 04:30 Troponin I 0.0130 ng/mL (0.00-0.120) 01/12/17 04:30 Total Protein 6.5 G/DL (6.3-8.2) 01/12/17 04:30 Albumin 3.2 g/dL (3.5-5.0) L D 01/12/17 04:30 Globulin 3.2 gm/dL (2.2-3.9) 01/12/17 04:30 Albumin/Globulin Ratio 1.0 (1.0-2.1) 01/12/17 04:30 Triglycerides 218 mg/DL (0-149) H 01/12/17 04:30 Cholesterol 106 mg/dL (0-199) 01/12/17 04:30 LDL Cholesterol Direct 33 mg/dL (0-129) 01/12/17 04:30 HDL Cholesterol 24 MG/DL (30-70) L 01/12/17 04:30 Lipase 126 U/L (23-300) 01/12/17 04:30 TSH 3rd Generation 1.75 mIU/ML (0.46-4.68) 01/12/17 04:30 Urine Color Straw (YELLOW) 01/11/17 11:32 Urine Clarity Clear (Clear) 01/11/17 11:32 Urine pH 6.0 (5.0-8.0) 01/11/17 11:32 Ur Specific [place] 1.025 (1.003-1.030) 01/11/17 11:32 Urine Protein Negative mg/dL (NEGATIVE) 01/11/17 11:32 Urine Glucose (UA) >=500 mg/dL (Normal) 01/11/17 11:32 Urine Ketones Trace mg/dL (NEGATIVE) 01/11/17 11:32 Urine Blood Negative (NEGATIVE) 01/11/17 11:32 Urine Nitrate Negative (NEGATIVE) 01/11/17 11:32 Urine Bilirubin Negative (NEGATIVE) 01/11/17 11:32 Urine Urobilinogen 0.2-1.0 mg/dL (0.2-1.0) 01/11/17 11:32 Ur Leukocyte Esterase Neg [place]/uL (Negative) 01/11/17 11:32 Urine RBC (Auto) < 1 /hpf (0-3) 01/11/17 11:32 Urine Microscopic WBC < 1 /hpf (0-5) 01/11/17 11:32 - Hospital Course Hospital Course: Patient presented in ER with elevated BG about 800, acidotic, hyperosmolar, ketotic. Patient was seen in ER severally dehydrated and hyponatremic with hyperkalemic. He was started on iv fluid and iv insulin. He improved on present rx at present metabolically and hemodynamically stable. Will dc home and f/u as op. Patient was educated on new regimen of insulin and hypoglycemia Discharge Exam - Head Exam Head Exam: ATRAUMATIC, NORMAL INSPECTION, NORMOCEPHALIC - Eye Exam Eye Exam: Normal appearance - Neck Exam Neck exam: Full Rom - Respiratory Exam Respiratory Exam: Clear to PA & Lateral - Cardiovascular Exam Cardiovascular Exam: REGULAR RHYTHM, +S1, +S2 - GI/Abdominal Exam GI & Abdominal Exam: Normal Bowel Sounds - Extremities Exam Extremities exam: normal inspection - Neurological Exam Neurological exam: Alert, CN II-XII Intact, Normal Gait, Oriented x3, Reflexes Normal - Psychiatric Exam Psychiatric exam: Normal Affect - Skin Skin Exam: Normal Color Discharge Plan - Discharge Medications Prescriptions: Insulin Lispro [Humalog (Insulin Lispro)] 12 unit SQ AC 30 Days #100 cartridge - Follow Up Plan Condition: STABLE Disposition: HOME/ ROUTINE
[2017-01-13 16:26] VITALS: BP 137/71; PULSE 87; TEMP 98.1
[2017-01-13] MEDS ORDERED: Insulin Lispro (humaLOG) 100 Units/ml Inj SC SCH (16:30)
--- NOTE | 2017-01-13 19:22 | PN ---
DATE: ROOM: 664. This is a 66-year-old male with recent uncontrolled type 2 insulin-requiring diabetes presenting here with hyperosmolar hyperglycemic state and ketosis with moderate dehydration and has since then improved clinically and metabolically as noted thereof. He received vigorous IV hydration with intensive insulin therapy using an insulin drip infusion given briefly in the ICU as noted. He has since then been switched over to a more physiologic basal and bolus insulin regimen as given . His glucose values have ranged from 179 to 223 mg/dL. His bedtime glucose was 52 with a repeat level of 100 at bedtime last night. So at this time, we will modify once again his basal and bolus insulin regimen and lower the Humalog to 10 units subcutaneous t.i.d. before meals to start at dinnertime today as ordered. We will titrate incrementally as indicated to optimize metabolic control. We will also continue the same basal insulin given at bedtime with Levemir to be given as 50 units subcutaneous at bedtime daily as given. We will continue the IV hydration as ordered with remarkable overnight improvement of his renal and biochemical indices as noted. We will follow and advise accordingly. Felicity Luciano MD
== END 2017-01-13 17:45 | disposition home or self-care (01) | DRG 638 ==
LOC: H.ER 10:52 → H.ERHOLD 15:01 → H.TEL 17:57 → H.ICU/CCU 19:18 → H.MEDSURG1 01-12 11:40
PROVIDERS: ADMIT Internal Medicine; ATTEND Internal Medicine
DX: E11.00 Type 2 diabetes mellitus with hyperosmolarity without nonketotic hyperglycemic-hyperosmolar coma (NKHHC) (principal); E87.1 Hypo-osmolality and hyponatremia; E11.40 Type 2 diabetes mellitus with diabetic neuropathy, unspecified; E11.21 Type 2 diabetes mellitus with diabetic nephropathy; E87.5 Hyperkalemia; E11.22 Type 2 diabetes mellitus with diabetic chronic kidney disease; I12.9 Hypertensive chronic kidney disease with stage 1 through stage 4 chronic kidney disease, or unspecified chronic kidney disease; N18.9 Chronic kidney disease, unspecified; Z79.4 Long term (current) use of insulin; E11.319 Type 2 diabetes mellitus with unspecified diabetic retinopathy without macular edema; E11.65 Type 2 diabetes mellitus with hyperglycemia; I25.10 Atherosclerotic heart disease of native coronary artery without angina pectoris; Z95.1 Presence of aortocoronary bypass graft; F32.9 Major depressive disorder, single episode, unspecified; E78.00 Pure hypercholesterolemia, unspecified; E86.0 Dehydration; E78.5 Hyperlipidemia, unspecified; F41.1 Generalized anxiety disorder